=== PATIENT | male | born 1960 | race Caucasian/White ===

== ENCOUNTER 2024-03-13 05:51 | Day surgery (SDC) | payer OTHER, SELFPAY ==
[2024-03-13] VITALS (8 sets, daily range): BP systolic 111–137; BP diastolic 81–99; PULSE 69–77; RESP 16–18; TEMP 36.4–36.6; O2SAT 93–97; BMI 26.0
[2024-03-13] MEDS: Lactated Ringers 1,000 ML 15 ML IV (06:14)
--- NOTE | 2024-03-13 06:40 | PCM.PRE.AN2 ---
ASA Classification* ASA Classification ASA Classification: 2 Assessment & Plan Anesthesia* Anesthesia Assessment Anesthesia Assessment: Discussed sedation and/or anesthesia options, risks, benefits, and alternatives with patient/parents/legal guardian/POA. Questions invited. The patient/parents/legal guardian/POA seems to understand and agrees to proceed with anesthesia plan. Reviewed the physical assessment, medical history, allergy history and patient home medications list prior to surgery/procedure/anesthetic and documented any changes. Performed airway and anesthesia risk assessments. 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 When Was Last Pacemaker Check QUESTION #4 FULL TEXT: You/Your Family Experience fever (hyperthermia) with Anesthesia Last Oral Intake Last Oral intake: Last Oral Intake NPO since 22:00 03/13/24 06:11 Meds taken in AM with sips of water? Meds patient instructed to take am of surgery PONV PONV - hedge fund trader: PONV - hedge fund trader Female No 03/08/24 10:52 HX of Motion Sickness No 03/08/24 10:52 HX of N/V After Surgery No 03/08/24 10:52 Non-Smoker No 03/08/24 10:52 Duration of Surgery greater No 03/08/24 10:52 than 60 minutes Number of Risk Factors PONV Score Height & Weight Height & Weight: Anesthesia: Height & Weight Height 5 ft 9 in 03/13/24 06:11 Weight: 80 kg 03/13/24 06:11 Body Mass Index (BMI) 26.0 03/13/24 06:11 Respiratory Assessment Respiratory Assessment - hedge fund trader: Respiratory Tract Infection Hx - hedge fund trader Hx Respiratory Tract Infection No 03/08/24 10:52 STOP Sleep Apnea STOP Sleep Apnea - hedge fund trader: STOP Sleep Apnea - hedge fund trader Hx Hypertension No 03/08/24 10:52 Hx Sleep Apnea No 03/08/24 10:52 CPAP BIPAP Do you snore loudly (louder No 03/08/24 10:52 than talking or can be heard Do you often feel tired/ No 03/08/24 10:52 fatigued/ sleepy during daytime? Has anyone observed you stop No 03/08/24 10:52 breathing during sleep? STOP Results Negative 03/08/24 10:52 QUESTION #5 FULL TEXT : Do you snore loudly (louder than talking or can be heard through closed doors)? Tobacco Use History Tobacco Use History - hedge fund trader: Tobacco Use History - hedge fund trader Tobacco Use Smoking Status Current some day smoker 03/08/24 10:52 Hx Tobacco Use Yes 03/08/24 10:52 Years Smoking Packs Smoked per Day Smoking Cessation Date was within the last 15 years Hx Smoking Cessation Date Hx Smoking Cessation Counseling Hematologic Medial History Hematologic Hx - hedge fund trader: Hematologic Medical Hx - manager paid Hx of Blood Transfusion No 03/08/24 10:52 Hx of Transfusion in last 3 No 03/08/24 10:52 Months Date of Last Transfusion (if within last 3 months) Ever experience any problems No 03/08/24 10:52 with transfusion(s)? Specify any problems Hx of Preganancy in last 3 N/A 03/08/24 10:52 Months Nurse Filling Out Transfusion NBUCHER 03/08/24 10:52 & Questions: Date: 03/08/24 03/08/24 10:52 Time: 10:53 03/08/24 10:52 Patient unable to answer at this time (ie. confused, unrespo /Reproduction History /Reproductive History - hedge fund trader: /Reproductive Hx- hedge fund trader Hx Now No 03/08/24 10:52 Gestational Age (in weeks): EDC: Hx Hx Para Hx Section SAB No 03/08/24 10:52 Active Medications Active Medications: Current Medications Generic Name Dose Route Start Last Admin Trade Name Freq PRN Reason Stop Dose Admin Cefazolin Sodium 2 gm/ Sodium 110 mls @ 150 mls/hr 03/13/24 07:30 Chloride IV 03/13/24 08:13 PREOP ONE Lactated Ringer's 1,000 mls @ 15 mls/hr 03/13/24 06:15 03/13/24 06:14 IV 15 mls/hr .Q48H JENNIFER Administration PFSH Medical History Depression Anxiety Alcohol use Prostate disease Restless legs Heartburn Smoker Benign prostate hyperplasia Home Medications ?Medication ?Instructions ?Recorded ?Last Taken ?Type duloxetine 30 mg capsule,delayed 30 mg PO DAILY 03/08/24 Unknown History release tamsulosin 0.4 mg capsule 0.4 mg PO DAILY 03/08/24 Unknown History Allergy/AdvReac Type Severity Reaction Status Date / Time No Known Allergies Allergy Verified 03/13/24 06:10 Surgical History History of bilateral carpal tunnel release History of arthroscopic knee surgery (~2017) Social History Smoking Status: Current some day smoker tobacco type: cigars Review of Systems (Anesthesia) ROS Narrative System reviewed and no additional complaints, except as documented.
[2024-03-13] MEDS: Cefazolin 2 GM in 0.9% Normal Saline (100mL Bag) 100 ML IV (07:29)
[2024-03-13] MEDS: Epinephrine (1 mg/ml) 1 MG/ML VIAL (07:49)
[2024-03-13] MEDS: Bupiv/Epi 0.25% 30 ML Vial (08:07)
--- NOTE | 2024-03-13 08:09 | PCM.OPRPT ---
Report of Operation Date of Procedure: 03/13/24 Description of Surgical Findings:: Preoperative diagnosis: 1. Right knee medial meniscus tear 2. Right knee intra-articular ganglion cyst 3. Intra-articular loose bodies right knee Postoperative diagnosis: 1. Right knee medial meniscus tear 2. Right knee intra-articular ganglion cyst 3. Intra-articular loose bodies right knee Procedure: Right knee arthroscopic partial medial meniscectomy, ganglion cyst excision and removal of loose bodies Surgeon: Rolando Willard DO News Agent: Josefa Shields PA-C Anesthesia: General LMA Anesthesiologist: Dr. Titus Estimated blood loss: 5 cc IV fluids: 800 cc crystalloid Urine output: None recorded Specimen: None Implants: None Packing/drains: None Complications: None apparent Preoperative indications: This is a 63-year-old male seen in the outpatient setting for right knee pain and mechanical symptoms. MRI was obtained demonstrated a posterior horn medial meniscus tear as well as a sizable intra-articular ganglion cyst posterior to the PCL and adjacent to the posterior horn of the medial meniscus with loose bodies within the cyst. Operative intervention in the form of right knee arthroscopic partial medial meniscectomy, cyst excision and removal of loose bodies was offered. The risks and benefits, alternatives to procedure reviewed with patient at length and he agreed to proceed. Risks included but were not limited to bleeding, infection, loss of life or limb, need for additional surgery, persistent pain, posttraumatic arthritis, neurovascular injury, stiffness, DVT or PE, risk of anesthesia. Informed consent obtained. Description of procedure: Patient identified preoperative holding her by name, correct number, and date of . The operative extremity was marked. All questions were answered to the patient's satisfaction. At time of his procedure, patient brought the operative suite positioned supine on standard operating table. All bony prominences well-padded. General anesthesia was administered and LMA was placed. A well-padded pneumatic tourniquet was applied to the operative upper thigh. An arthroscopic post was placed along the lateral aspect of the operative thigh. We prepped and draped the right lower extremity in normal, sterile peak fashion. We performed a timeout with all parties in attendance in agreement with the side, site, operation be performed. 2 g Ancef was administered by anesthesia staff prior to tourniquet inflation. I then exsanguinated the right lower extremity with Esmarch bandage. Tourniquet was inflated to 250 mmHg for approximately 15 minutes. Esmarch was removed. Standard anterolateral portal was then established 90 degrees of flexion. Blunt tipped trocar was used to enter the knee joint. Knee was filled with normal saline with epinephrine. Arthroscope was then introduced. Diagnostic arthroscopy of the patellofemoral joint demonstrated pristine cartilage, hypertrophic fat pad. Medial lateral gutter was unremarkable. Valgus stress was applied the knee to anterior the medial compartment with the knee in extension. Anterior medial portal was established under direct visualization. Medial compartment was then examined. Cartilage was pristine. Meniscus was significantly torn, complex tearing with a dominant horizontal pattern. Partial meniscectomy was performed with combination of baskets and shaver to a stable rim. There was minimal remaining posterior horn of the medial meniscus. Ganglion cyst was then seen between the meniscal root and PCL. Cyst was opened with a basket and several small loose bodies were removed with combination of grasper forceps and shaver. With the size and consistency to palpation, these appear to be more consistent with a rice body. Cyst was dilated and the anteriormost portion of the cyst wall was excised. Aggressive posterior excision was not performed due to proximity to neurovascular bundle. Intercondylar notch was pristine with normal ACL and PCL. Lateral compartment was then entered. Varus stress was applied. Lateral compartment appeared pristine. The knee was thoroughly lavaged after debridement of the fat pad with the arthroscopic shaver. The knee was anesthetized with 30 cc total quarter percent bupivacaine with epinephrine. Portal sites were closed in interrupted [id number] fashion with 3-0 nylon suture. Bulky sterile compression system was applied. Tourniquet was deflated. Patient was safely awoken the operative suite and extubated. He was transferred to his [place] and subsequent to PACU in stable condition. Postoperative plan: Weightbearing, range of motion as tolerated operative knee Follow-up in 2 weeks for suture removal Physical therapy to start at 1 week Multimodal pain management with opioid, NSAID and Tylenol Aspirin 81 mg for DVT prophylaxis x 2 weeks Ice and elevation.
--- NOTE | 2024-03-13 08:23 | PCM.POST.ANE ---
Anesthesia: Postop Eval I Current Vital Signs Temperature: 98 F Pulse Rate: 77 Blood Pressure: 118/85 Respiratory Rate: 18 Pulse Ox: 93 Oxygen Delivery Method: Room Air Assessment Airway patent: Yes Spontaneous unlabored respirations: Yes Mental status: Awake and Calm nausea: No Vomiting: No Anesthesia Complication: No Fluid Hydration Crystalloid volume administer (ml): 800 Total IV fluid infused: 800 Progress Note Anesthesia document: Postop Eval 1 completed: Yes
--- NOTE | 2024-03-13 08:32 | POSTOPAN2_ITS ---
Anesthesia Postop Eval I Sum Postop Eval Completion status Anesthesia document: Postop Eval 1 completed: Yes Anesthesia Postop Eval I Summary Anesthesia Postop Eval I Summary: Anesthesia Postop Eval I: Assessment Summary Airway patent Yes 03/13/24 08:24 LENS GENERATOR.CSIR Spontaneous unlabored Yes 03/13/24 08:24 LENS GENERATOR.CSIR respirations Mental status Awake,Calm 03/13/24 08:24 LENS GENERATOR.CSIR nausea No 03/13/24 08:24 LENS GENERATOR.CSIR Vomiting No 03/13/24 08:24 LENS GENERATOR.CSIR Anesthesia Postop Eval I: Fluid Summary Crystalloid volume administer 800 03/13/24 08:24 LENS GENERATOR.CSIR (ml) Colloids volume administered ( ml) Blood Product volume administered (ml) Total IV fluid infused 800 03/13/24 08:24 LENS GENERATOR.CSIR Anesthesia Postop Eval I: Summary Notes Anesthesia Complication No 03/13/24 08:24 LENS GENERATOR.CSIR Anesthesia Complication Comment: Post-operative progress note Anesthesia: Postop Eval II Evaluation Mental status: Awake Pain Level: 0 nausea: No Vomiting: No
--- NOTE | 2024-03-13 08:32 | PCM.POSTANE2 ---
Anesthesia Postop Eval I Sum Postop Eval Completion status Anesthesia document: Postop Eval 1 completed: Yes Anesthesia Postop Eval I Summary Anesthesia Postop Eval I Summary: Anesthesia Postop Eval I: Assessment Summary Airway patent Yes 03/13/24 08:24 REFERRAL AND INFORMATION AIDE.CSIR Spontaneous unlabored Yes 03/13/24 08:24 REFERRAL AND INFORMATION AIDE.CSIR respirations Mental status Awake,Calm 03/13/24 08:24 REFERRAL AND INFORMATION AIDE.CSIR nausea No 03/13/24 08:24 REFERRAL AND INFORMATION AIDE.CSIR Vomiting No 03/13/24 08:24 REFERRAL AND INFORMATION AIDE.CSIR Anesthesia Postop Eval I: Fluid Summary Crystalloid volume administer 800 03/13/24 08:24 REFERRAL AND INFORMATION AIDE.CSIR (ml) Colloids volume administered ( ml) Blood Product volume administered (ml) Total IV fluid infused 800 03/13/24 08:24 REFERRAL AND INFORMATION AIDE.CSIR Anesthesia Postop Eval I: Summary Notes Anesthesia Complication No 03/13/24 08:24 REFERRAL AND INFORMATION AIDE.CSIR Anesthesia Complication Comment: Post-operative progress note Anesthesia: Postop Eval II Evaluation Mental status: Awake Pain Level: 0 nausea: No Vomiting: No
== END 2024-03-13 09:00 | disposition home or self-care (01) ==
LOC: SDC 06:53 → AC 06:54
PROVIDERS: Referring Provider Student in an Organized Health Care Education/Training Program; Visit Provider Student in an Organized Health Care Education/Training Program
PROC: (CPT 29870; principal; 2024-03-13 07:10)
DX: S83.241A Other tear of medial meniscus, current injury, right knee, initial encounter (principal); M67.461 Ganglion, right knee; N40.0 Benign prostatic hyperplasia without lower urinary tract symptoms; F17.200 Nicotine dependence, unspecified, uncomplicated; Z79.899 Other long term (current) drug therapy; X58.XXXA Exposure to other specified factors, initial encounter
CPT/HCPCS: 29881; 27347; J7120; J2405